=== PATIENT | female | born 1965 | race Caucasian/White ===

== ENCOUNTER → 2023-05-27 | Day surgery (SDC) | payer BC, OTHER ==
[~2023-05-27] VITALS: Ht 162.6 cm; Wt 60.8 kg
[~2023-05-27] MED LIST: AMIT10TA7 PO; BSS IRRIG/VANCO(10MG)/TOBRA(5MG)/EPINEPH(1:1000-0.5CC)500ML BAG-ORONLY IR ONE; CEFUROXIME 1MG/0.1ML INTRACAMERAL INJ As Ordered ONE; CYCLOPENTOLATE 1% OPHTH SOLN 2ML BTL OS SCH; ERGO500029 PO; GABA-1171 PO; LIDOCAINE 1% SDV 5ML VIAL As Ordered ONE; LIDOCAINE 3.5 % 1ML OPHTH TOPICAL GEL OU ONE; MELA3TAB29 PO; MELO15TA28 PO; OFLOXACIN 0.3 % (OCUFLOX) OPTH SOL 5ML OS ONE; PHENYLEPHRINE 10% OPHTH SOL 5ML OS PRN; PHENYLEPHRINE 2.5% OPHTH SOL 2ML OS SCH; TROPICAMIDE 1% OPHTH SOLN 15ML OS SCH; ZOLO100T PO
[2023-05-27 07:01] VITALS: BP 169/93; TEMP 97.5; O2SAT 96
== END | disposition home or self-care (01) ==
LOC: M SDC 06:42
PROVIDERS: ATTEND Ophthalmology
DX: H25.12 Age-related nuclear cataract, left eye (principal); Z53.8 Procedure and treatment not carried out for other reasons

== ENCOUNTER 2023-08-06 06:50 | Day surgery (SDC) | payer BC, OTHER ==
[~2023-08-06] VITALS: Ht 157.5 cm; Wt 61.7 kg
[~2023-08-06 06:50] MED LIST changes: -BSS IRRIG/VANCO(10MG)/TOBRA(5MG)/EPINEPH(1:1000-0.5CC)500ML BAG-ORONLY IR ONE; -CEFUROXIME 1MG/0.1ML INTRACAMERAL INJ As Ordered ONE; -CYCLOPENTOLATE 1% OPHTH SOLN 2ML BTL OS SCH; -LIDOCAINE 1% SDV 5ML VIAL As Ordered ONE; -LIDOCAINE 3.5 % 1ML OPHTH TOPICAL GEL OU ONE; -OFLOXACIN 0.3 % (OCUFLOX) OPTH SOL 5ML OS ONE; -PHENYLEPHRINE 2.5% OPHTH SOL 2ML OS SCH; -TROPICAMIDE 1% OPHTH SOLN 15ML OS SCH
[2023-08-06] MEDS ORDERED: fentaNYL 100 MCG/2 ML INJECTION As Ordered ONE (07:06)
[2023-08-06] MEDS ORDERED: MIDAZOLAM INJ 2MG/2ML VIAL As Ordered ONE (07:06)
[2023-08-06] MEDS: OFLOXACIN 0.3 % (OCUFLOX) OPTH SOL 5ML OS ONE (07:14)
[2023-08-06] MEDS: LIDOCAINE 3.5 % 1ML OPHTH TOPICAL GEL OU ONE (07:15)
[2023-08-06] MEDS: PHENYLEPHRINE 2.5% OPHTH SOL 2ML OS SCH (07:18)
[2023-08-06] MEDS: TROPICAMIDE 1% OPHTH SOLN 15ML OS SCH (07:18)
[2023-08-06] MEDS: ATROPINE SULFATE 1% OPHTH SOLN 2ML BTL OS SCH (07:18)
[2023-08-06] MEDS: LIDOCAINE 1% SDV 5ML VIAL As Ordered ONE (08:15)
[2023-08-06] MEDS: BSS IRRIG/VANCO(10MG)/TOBRA(5MG)/EPINEPH(1:1000-0.5CC)500ML BAG-ORONLY As Ordered ONE (08:15)
[2023-08-06] MEDS: CEFUROXIME 1MG/0.1ML INTRACAMERAL INJ As Ordered ONE (08:16)
[2023-08-06 08:33] VITALS: BP 160/79; TEMP 96.9; O2SAT 99
== END 2023-08-06 08:49 | disposition home or self-care (01) ==
LOC: M SDC 06:50
PROVIDERS: ATTEND Ophthalmology
DX: H25.12 Age-related nuclear cataract, left eye (principal); F32.A Depression, unspecified; Z79.899 Other long term (current) drug therapy
CPT/HCPCS: 66984; 92015; J0697; J2250; J3010; V2632

== ENCOUNTER 2023-08-27 09:45 | Day surgery (SDC) | payer BC ==
[~2023-08-27] VITALS: Ht 162.6 cm; Wt 61.5 kg
[~2023-08-27 09:45] MED LIST changes: +PHENYLEPHRINE 10% OPHTH SOL 5ML OD PRN; -PHENYLEPHRINE 10% OPHTH SOL 5ML OS PRN
[2023-08-27] MEDS: OFLOXACIN 0.3 % (OCUFLOX) OPTH SOL 5ML OD ONE (10:00)
[2023-08-27] MEDS: LIDOCAINE 3.5 % 1ML OPHTH TOPICAL GEL OU ONE (10:00)
[2023-08-27] MEDS ORDERED: MIDAZOLAM INJ 2MG/2ML VIAL As Ordered ONE (10:35)
[2023-08-27] MEDS ORDERED: fentaNYL 100 MCG/2 ML INJECTION As Ordered ONE (10:35)
[2023-08-27] MEDS: LIDOCAINE 1% SDV 5ML VIAL As Ordered ONE (11:02)
[2023-08-27] MEDS: CEFUROXIME 1MG/0.1ML INTRACAMERAL INJ As Ordered ONE (11:03)
[2023-08-27] MEDS: BSS IRRIG/VANCO(10MG)/TOBRA(5MG)/EPINEPH(1:1000-0.5CC)500ML BAG-ORONLY As Ordered ONE (11:03)
[2023-08-27 11:09] VITALS: BP 138/84; TEMP 97.3; O2SAT 96
[2023-08-27] MEDS: PHENYLEPHRINE 2.5% OPHTH SOL 2ML OD SCH (11:58)
[2023-08-27] MEDS: ATROPINE SULFATE 1% OPHTH SOLN 2ML BTL OD SCH (11:58)
[2023-08-27] MEDS: TROPICAMIDE 1% OPHTH SOLN 15ML OD SCH (11:58)
== END 2023-08-27 11:20 | disposition home or self-care (01) ==
LOC: M SDC 09:45
PROVIDERS: ATTEND Ophthalmology
DX: H25.11 Age-related nuclear cataract, right eye (principal); J45.909 Unspecified asthma, uncomplicated; Z79.899 Other long term (current) drug therapy; Z79.1 Long term (current) use of non-steroidal anti-inflammatories (NSAID); Z98.42 Cataract extraction status, left eye; Z90.710 Acquired absence of both cervix and uterus
CPT/HCPCS: 66984; 92015; J0697; J2250; J3010; V2632